=== PATIENT | female | born 1970 | race Caucasian/White ===

== ENCOUNTER → 2017-04-28 | Outpatient (CLI) | payer BC ==
[~2017-04-28] MED LIST: CYMBALTA PO; LINZESS145 MCG PO; LYRICA300 MG PO; OMEPRAZOLE40 M1 PO
--- NOTE | ~2017-04-28 | MR59 ---
[facility]. [facility] A Service of [facility] & [facility] RADIOLOGY TEXT RESULTS PATIENT: TONY RODRIGUEZ LOCATION: [facility] : [birth year] UNIT #: [id number] AGE: [address]: Aparna Oliver DPM SEX: F ORDER DR: [id number] [address] [address] [id number] MR#: [id number] Acc #: [id number] NAME: TONY RODRIGUEZ : 1970 SEX: F STUDY DATE/TIME: 04/28/2017 14:02 UNIT: [facility] ROOM: STUDY DESCRIPTION: MR Foot WWo Contrast Rt Attending Physician: Aparna Oliver D.P.M. Referring Physician: Aparna Oliver D.P.M. Ordering Physician: Aparna Oliver D.P.M. Primary Care Physician: Kory Todd M.D. MRI CENTER REPORT This report is preliminary unless electronic signature is present. EXAM MRI right forefoot without and with IV contrast 04/28/2017. COMPARISON STUDIES Comparison - right ankle foot radiographs 07/01/2015, MRI right forefoot 10/21/2013; operative report [facility] 10/18/2013 (extensor hallucis tendon lengthening, excisional debridement of right foot wound with graft application), and MRI right foot 10/25/2013. HISTORY History - order states chronic ankles. History sheet states neuropathy without diabetes. Recurring ulcer for 4 years plantar ball of foot near the sesamoid area of the great toe.? Osteomyelitis. FINDINGS There is no sizeable wound or ulceration. There is however, skin thickening and underlying superficial subcutaneous space, low signal with only mildly prominent vascular enhancement, measuring up to 4.4 cm AP x 3.4 cm transverse most compatible with subcutaneous scar/fibrosis. There is minimally prominent skin enhancement of the plantar medial forefoot which could reflect infectious or inflammatory dermatitis. There is an equivocal small wound measuring 6 mm transverse x 7 mm AP with no significant depth. There is no evidence of a sizable zone of enhancing subcutaneous cellulitis, abscess, or osteomyelitis. There is mild arthritic change at the first MTP complex and sesamoids with slight progression from 10/25/2013. There is no evidence of septic arthritis or intermetatarsal bursitis. On further review of the operative report in the documents of the study of 10/21/2013, the extensor tendon lengthening was of the opposite left foot. The patient has only undergone debridement of the right foot. [facility]. [facility] A Service of [facility] RADIOLOGY TEXT RESULTS PATIENT: TONY RODRIGUEZ LOCATION: [facility] : [birth year] UNIT #: [id number] AGE: [address]: Aparna Oliver DPM SEX: F ORDER DR: There is severe diffuse muscle atrophy which has progressed since 10/25/2013. Reportedly the patient has neuropathy unrelated to diabetes. IMPRESSION 1. Skin thickening with very minimal enhancement of the plantar medial forefoot with a potential tiny superficial dermal ulceration or wound measuring 7 x 5 mm. Findings could reflect minimal infectious or inflammatory dermatitis. The underlying subcutaneous space demonstrates scar/fibrosis with only normal vascular enhancement. There is no definite evidence of subcutaneous cellulitis. 2. No evidence of abscess, osteomyelitis, or septic arthritis. 3. Slightly progressive first MTP joint arthrosis. 4. Progressive forefoot muscle atrophy compatible with reported neuropathy. 5. No fracture. 6. Slightly progressive first MTP joint arthrosis since 10/25/2013. 1. Dictated by... Katie Mistry M.D. THIS IS AN ELECTRONICALLY VERIFIED REPORT Katie Mistry M.D. at 05/02/2017 8:43 AM Shawn TD: 05/01/2017 15:04 JOB #: [id number] MRI CENTER REPORT Page 1 of 1
== END | disposition home or self-care (01) ==
LOC: SMRI 13:30
DX: L97.512 Non-pressure chronic ulcer of other part of right foot with fat layer exposed (principal); M19.071 Primary osteoarthritis, right ankle and foot; M62.571 Muscle wasting and atrophy, not elsewhere classified, right ankle and foot
CPT/HCPCS: 73720; A9581